=== PATIENT | male | born 1975 | race Hispanic/Latino ===

== ENCOUNTER 2018-02-13 05:57 | Day surgery (SDC) | payer OTHER ==
[~2018-02-13] VITALS: Ht 165.1 cm; Wt 75.5 kg
[2018-02-13 07:16] VITALS: BP 137/87
[2018-02-13] MEDS ORDERED: SODIUM CHLORIDE 0.9% 1000ML 1,000 ML IV ONE (07:39)
[2018-02-13] MEDS ORDERED: PROPOFOL 10 MG/ML 20ML VIAL IV ONE (08:35)
[2018-02-13 08:51] VITALS: BP 93/60
== END 2018-02-13 09:25 | disposition home or self-care (01) ==
LOC: DAH 05:57 → ENDO 05:57
PROVIDERS: ATTEND Internal Medicine Gastroenterology
DX: K29.00 Acute gastritis without bleeding (principal); Z98.890 Other specified postprocedural states; K29.50 Unspecified chronic gastritis without bleeding
CPT/HCPCS: 43239; 43259; A4606; J2704; J7030; 43231